=== PATIENT | male | born 1980 | race Two or more races ===

== ENCOUNTER 2019-02-08 05:37 | Emergency (ER) | payer MEDICAID ==
[~2019-02-08] VITALS: Ht 167.6 cm; Wt 72.6 kg
[2019-02-08] MEDS ORDERED: LORazepam Inj 2mg/ml 1ml IV ONE (05:45)
--- NOTE | 2019-02-08 05:45 | NUR ---
ED Nurse Note: Recieved pt BIBA from [facility] with c/o nausea and vomiting from withdrawls, pt states meth and marijuanna, last used 02/06, pt is restless and agitated, denies cp, heart rate increased, pt immediately gowjned and placed on cardiac moitoring, ivv ine placed and labs drawn also, will continue to closely monitor and resume care as ordered, pt has intermittent periods of speaking bizzarrily and making no sense, pt is cooperative but very paranoid stating the whole word is trying to kill him.
--- NOTE | 2019-02-08 05:46 | Emergency Room Report ---
History of Present Illness General Chief Complaint: Vomiting Source: Patient (Richard Reagan MD) Present Illness HPI Is a 38-year-old male brought in by EMS with chief complaint of possible substance abuse and vomiting. Patient was acting bizarrely and was vomiting. He was running around naked and try to break into cars. Police that he was acting bizarrely so they called 911. Patient told me he smoked marijuana but denies any drug use. He told the nurse that he withdrawing from methamphetamine. He said he used yesterday. Patient denies any suicidal thoughts homicidal thought. He was concerned about his bag because he said he has something in it. Denies any other complaint. No fever chills. He felt like someone is out to get him. (Richard Reagan MD) Allergies: Coded Allergies: No Known Allergies (Unverified , 02/08/19) Patient History Past Medical History: see triage record, old chart reviewed Past Surgical History: none Pertinent Family History: none Social History: Reports: smoking, drug use Immunizations: other Reviewed Nursing Documentation: PMH: Agreed; PSxH: Agreed (Richard Reagan MD) Nursing Documentation-PMH Past Medical History: Deferred (Richard Reagan MD) Review of Systems Eye: Denies: eye pain, blurred vision ENT: Denies: ear pain, nose congestion, throat swelling Respiratory: Denies: cough, shortness of breath Cardiovascular: Denies: chest pain, palpitations Gastrointestinal: Denies: abdominal pain, diarrhea, nausea, vomiting Musculoskeletal: Denies: back pain, joint pain Skin: Denies: rash Neurological: Denies: headache, numbness Endocrine: Denies: increased thirst, increased urine Hematologic/Lymphatic: Denies: easy bruising All Other Systems: negative except mentioned in HPI (Richard Reagan MD) Physical Exam Vital Signs Date Time Temp Pulse Resp B/P (MAP) Pulse Ox O2 Delivery O2 Flow Rate FiO2 02/08/19 05:33 99.0 122 20 167/132 (144) 98 Room Air Vitals with tachycardia. Repeat blood pressure better. Sp02 EP Interpretation: reviewed, normal General Appearance: well appearing, no apparent distress, alert Head: normocephalic, atraumatic Eyes: bilateral eye PERRL, bilateral eye EOMI ENT: hearing grossly normal, normal pharynx Neck: full range of motion, supple, no meningismus Respiratory: chest non-tender, lungs clear, normal breath sounds Cardiovascular #1: regular rate, rhythm, no murmur Gastrointestinal: normal bowel sounds, non tender, no mass, no organomegaly, no bruit, non-distended Musculoskeletal: back normal, gait/station normal, normal range of motion Neurologic: alert, oriented x3, other - Jittery, agitated Psychiatric: mood/affect normal (Richard Reagan MD) Medical Decision Making Diagnostic Impression: Primary Impression: Substance abuse Additional Impressions: Psychosis Qualified Codes: F23 - Brief psychotic disorder Vomiting Qualified Codes: R11.2 - Nausea with vomiting, unspecified ER Course This patient presents with vomiting and acute psychosis secondary to substance abuse. Better after Ativan. IV fluids given. Once improved, will DC home. (Richard Reagan MD) Laboratory Tests Test 02/08/19 05:40 Urine Opiates Screen Negative (NEGATIVE) Urine Barbiturates Screen Negative (NEGATIVE) Phencyclidine (PCP) Screen Negative (NEGATIVE) Urine Amphetamines Screen Positive (NEGATIVE) H Urine Benzodiazepines Screen Negative (NEGATIVE) Urine Cocaine Screen Negative (NEGATIVE) Urine Marijuana (THC) Screen Positive (NEGATIVE) H Serum Alcohol < 3 mg/dL (Raf Patterson MD) Last Vital Signs Date Time Temp Pulse Resp B/P (MAP) Pulse Ox O2 Delivery O2 Flow Rate FiO2 02/08/19 05:33 99.0 122 20 167/132 (144) 98 Room Air Status: improved (Richard Reagan MD) Reevaluation Time: 07:15 Reevaluation Impression 38-year-old male admits to using methamphetamines, heart rate improved after fluid administration, patient remains asymptomatic, feels better and wants to go home disposition home with return precautions counseled patient not to utilize methamphetamines anymore. HR 80s-90s (Raf Patterson MD) Disposition: HOME, SELF-CARE Condition: Stable Additional Instructions: Stop using drugs and alcohol. Go to rehab. Follow-up with your doctor in 7 days. Return if worse. Richard Reagan MD Feb 08, 2019 05:46 Raf Patterson MD Feb 08, 2019 07:16
[2019-02-08 06:15] VITALS: BP 149/97
[2019-02-08] MEDS ORDERED: Ketorolac 30mg Inj IV ONE (06:45)
--- NOTE | 2019-02-08 07:29 | NUR ---
ED Nurse Note: Patient cleared for discharge, verbalized understanding of discharge instructions. ID band removed, IV removed. Patient departed with all belongings along with a shirt provided by hospital. Patient ambulatory with steady gait.
[2019-02-08 07:30] VITALS: BP 149/97
== END 2019-02-08 07:32 | disposition home or self-care (01) ==
LOC: EDBD 05:37 → EMR 05:45
DX: F19.10 Other psychoactive substance abuse, uncomplicated (principal); F17.200 Nicotine dependence, unspecified, uncomplicated; F23 Brief psychotic disorder; R11.2 Nausea with vomiting, unspecified
CPT/HCPCS: 36415; 80307; 80329; 96361; 96374; 96375; 96376; J1885; J2405; Z7502; 99284